=== PATIENT | male | born 1980 | race Caucasian/White ===

== ENCOUNTER 2017-03-27 13:41 | Emergency (ER) | payer BC, OTHER ==
[~2017-03-27] VITALS: Ht 180.3 cm; Wt 82.2 kg
[~2017-03-27 13:41] MED LIST: ATEN50TA8 PO; FISH OI1 PO; LISI-725 PO; MULT-506 PO; OXYC-57 PO
[2017-03-27 13:47] VITALS: TEMP 36.6; Ht 180.3 cm; Wt 82.2 kg
--- NOTE | 2017-03-27 14:10 | EMERGENCY ROOM VISIT NOTE ---
History First contact with patient: 13:47 Chief Complaint: ABDOMINAL PAIN Stated Complaint: FREQUENT URINATION W/STONES & ANUP SUBSTANCE Nursing Triage Summary: triage note; pt reports abd pain x 1 year "i have put off doing anything about it." pt denies any nausea, vomitting, diarrhea, constipation. History of Present Illness The patient is a 36 year old male who presents to the Emergency Room with complaints of urinary symptoms which have been ongoing for the past one year. The patient reports that over the past one year, he has had dysuria, increased frequency of urination and a feeling of incomplete emptying. He also reports passing stones and a anup substance in the urine. He states that he has been seen by the urgent care in [place] multiple times and has had STD testing 3 which were negative. He was seen by a urologist last year and states that they did some sort of scan and found that his bladder was not emptying fully. He reports that he was supposed to follow-up with them several weeks later, but did not make an appointment for follow-up and has not been seen by them since. He occasionally has pain in the suprapubic region of his abdomen. He also reports losing 20 pounds in the past 6 months. He smokes marijuana but denies any other drug use. He does smoke cigarettes as well. He is concerned that he may have cancer. He reports concern because his uncle had pancreatic cancer and was not seen until very late in the course. He also reports a family history of prostate cancer, but denies any family history of bladder or renal cell carcinoma. The patient denies any nausea, vomiting, changes in bowel movements, chest pain or shortness of breath. He denies any fevers/chills or recent illness. Review of Systems A complete 10 point review of systems was reviewed with the patient with pertinent positives and negatives as per history of present illness. All else were negative. Social History Smoking Status: Current Every Day Smoker Current/Historical Medications Scheduled , 1 CAP PO DAILY Atenolol (Tenormin), 50 MG PO DAILY Lisinopril (Zestril), 40 MG PO DAILY Multivitamin (Multivitamin), 1 TAB PO DAILY Allergies Coded Allergies: No Known Allergies (Verified , 03/27/17) Physical Exam Vital Signs Date Time Temp Pulse Resp B/P (MAP) Pulse Ox O2 Delivery O2 Flow Rate FiO2 6/13/17 16:34 62 16 125/72 98 03/27/17 15:45 62 16 125/72 98 Room Air 03/27/17 13:47 36.6 64 18 161/99 98 Room Air Physical Exam VITALS: Vitals are noted on the nurse's note and reviewed by myself. Vital signs stable. GENERAL: This is a 36-year-old male, in no acute distress but mildly anxious appearing, well-developed well-nourished. SKIN: The skin was without rashes or bruising. HEART: Regular rate and rhythm without murmurs gallops or rubs. LUNGS: Clear to auscultation bilaterally without wheezes, rales or rhonchi. ABDOMEN: Positive bowel sounds x 4. Soft, nontender, without masses or organomegaly. MUSCULOSKELETAL: No CVA tenderness. NEURO: Patient was alert and oriented to person place and time. Medical Decision & Procedures Laboratory Results 03/27/17 14:35 Red Blood Count 5.02, Mean Corpuscular Volume 88.0, Mean Corpuscular Hemoglobin 31.3, Mean Corpuscular Hemoglobin Concent 35.5, Mean Platelet Volume 8.6, Neutrophils (%) (Auto) 64.7, Lymphocytes (%) (Auto) 26.9, Monocytes (%) (Auto) 6.5, Eosinophils (%) (Auto) 0.7, Basophils (%) (Auto) 0.9, Neutrophils # (Auto) 4.77, Lymphocytes # (Auto) 1.98, Monocytes # (Auto) 0.48, Eosinophils # (Auto) 0.05, Basophils # (Auto) 0.07 03/27/17 14:35 Test 03/27/17 00:00 03/27/17 14:35 Urine Color DK YELLOW Urine Appearance CLOUDY (CLEAR) Urine pH 8.0 (4.5-7.5) Urine Specific [place] 1.022 (1.000-1.030) Urine Protein NEG (NEG) Urine Glucose (UA) NEG (NEG) Urine Ketones NEG (NEG) Urine Occult Blood NEG (NEG) Urine Nitrite NEG (NEG) Urine Bilirubin NEG (NEG) Urine Urobilinogen NEG (NEG) Urine Leukocyte Esterase NEG (NEG) Urine WBC (Auto) 1-5 /hpf (0-5) Urine RBC (Auto) 0-4 /hpf (0-4) Urine Hyaline Casts (Auto) 0 /lpf (0-5) Urine Epithelial Cells (Auto) 10-20 /lpf (0-5) Urine Bacteria (Auto) NEG (NEG) White Blood Count 7.37 K/uL (4.8-10.8) Red Blood Count 5.02 M/uL (4.7-6.1) Hemoglobin 15.7 g/dL (14.0-18.0) Hematocrit 44.2 % (42-52) Mean Corpuscular Volume 88.0 fL (80-100) Mean Corpuscular Hemoglobin 31.3 pg (25-34) Mean Corpuscular Hemoglobin Concent 35.5 g/dl (32-36) Platelet Count 158 K/uL (130-400) Mean Platelet Volume 8.6 fL (7.4-10.4) Neutrophils (%) (Auto) 64.7 % Lymphocytes (%) (Auto) 26.9 % Monocytes (%) (Auto) 6.5 % Eosinophils (%) (Auto) 0.7 % Basophils (%) (Auto) 0.9 % Neutrophils # (Auto) 4.77 K/uL (1.4-6.5) Lymphocytes # (Auto) 1.98 K/uL (1.2-3.4) Monocytes # (Auto) 0.48 K/uL (0.11-0.59) Eosinophils # (Auto) 0.05 K/uL (0-0.5) Basophils # (Auto) 0.07 K/uL (0-0.2) RDW Standard Deviation 39.9 fL (36.4-46.3) RDW Coefficient of Variation 12.6 % (11.5-14.5) Immature Granulocyte % (Auto) 0.3 % Immature Granulocyte # (Auto) 0.02 K/uL (0.00-0.02) Anion Gap 3.0 mmol/L (3-11) Est Creatinine Clear Calc Drug Dose 117.0 ml/min Estimated GFR () 122.7 Estimated GFR (Non- 105.9 BUN/Creatinine Ratio 9.6 (10-20) Calcium Level 8.8 mg/dl (8.5-10.1) ED Course The patient was evaluated as above. Labs were drawn and IV access was obtained. CT of the abdomen and pelvis was performed and read by radiology as above. Patient was reevaluated and findings were discussed. Discharge instructions were reviewed with the patient. The patient verbalized understanding of my assessment and treatment plan and was discharged home in good condition. Medical Decision Differential diagnosis includes kidney stones, STD, urinary tract infection, malignancy, psychogenic cause, among others. The patient is a 36-year-old male who presents today complaining of urinary complaints which have been ongoing for the past one year. The patient has been seen by his primary care provider, urgent care and urology. I was able to review the patient's records in the [facility] system. He was seen by Dr. Childress of [facility] urology on 08/10/16. He was then scheduled for a follow- up appointment which she canceled. He was rescheduled for another follow-up, but also canceled this appointment. Review of the patient's records show that he has had a renal ultrasound, urinalysis, urine culture and screening for gonorrhea and chlamydia, all of which were negative. Urology had recommended performing a cystoscopy for further evaluation, however the patient never followed up to have this done. Labs today revealed no leukocytosis, anemia, or concerning electrolyte abnormalities. Urinalysis showed a slightly elevated pH, but no other findings. CT showed no evidence of a stone or hydronephrosis. The cause of the patient's ongoing symptoms is unclear. He will need to follow up with urology for further evaluation. I did discuss the importance of follow-up with his specialist with the patient. He will call them this week for follow-up. The patient's case was reviewed with Dr. Gupta, ED attending physician, who agreed with my assessment and treatment plan. Based on the patient's presentation and work up, I feel the patient is stable for outpatient treatment. The patient was educated to return to the emergency department for any worsening of their current condition or new/concerning symptoms. He will follow up with [facility] urology and his PCP. Medication reconciliation: I attest that I have personally reviewed the patient 's current medication list. Blood pressure screening: Patient was found to have normal blood pressure on screening and does not require follow-up. Impression Primary Impression: Dysuria Departure Information Dispostion Home / Self-Care Condition GOOD Referrals No Doctor, Assigned (PCP) Linnea Childress MD Patient Instructions My [facility] Additional Instructions Today's CT scan, labs and urinalysis were all normal. Call [facility] urology to schedule a follow-up appointment. You should also follow-up with your primary care provider regarding today's emergency department visit. Return to the emergency department with any worsening or new/concerning symptoms.
[2017-03-27] MEDS ORDERED: LISI-794 PO (14:25)
[2017-03-27 14:47] LABS: BASO % 0.9 %; BASO ABS # 0.07 K/uL (0-0.2); COMPLETE YES; EOS % 0.7 %; HEMATOCRIT 44.2 % (42-52); IG% 0.3 %; LYMPH % 26.9 %; LYMPH ABS # 1.98 K/uL (1.2-3.4); MEAN CORPUSCULAR HEMOGLOBIN 31.3 pg (25-34); MEAN CORPUSCULAR HGB CONC 35.5 g/dl (32-36); MEAN PLATELET VOLUME 8.6 fL (7.4-10.4); MONO % 6.5 %; NEUT % 64.7 %; PLATELET COUNT 158 K/uL (130-400); RED BLOOD COUNT 5.02 M/uL (4.7-6.1); WHITE BLOOD COUNT 7.37 K/uL (4.8-10.8)
[2017-03-27 15:01] LABS: URINE APPEARANCE CLOUDY (CLEAR); URINE BILIRUBIN NEG (NEG); URINE COLOR DK YELLOW; URINE NITRITE NEG (NEG); URINE SPECIFIC GRAVITY 1.022 (1.000-1.030); UROBILINOGEN NEG (NEG); ZZUR CULT IF INDIC CLEAN CATCH NO
[2017-03-27 15:03] LABS: MANUAL MICROSCOPIC REQUIRED? NO; REVIEW REQ? NO
[2017-03-27 15:04] LABS: BUN/CREATININE RATIO 9.6 (10-20); CALCIUM 8.8 mg/dl (8.5-10.1); CREATININE 0.92 mg/dl (0.60-1.40); POTASSIUM 4.1 mmol/L (3.5-5.1)
--- NOTE | 2017-03-27 15:26 | DIAGNOSTIC IMAGING REPORT ---
ABDOMEN AND PELVIS CT WITHOUT CONTRAST CT DOSE: 308.50 mGy.cm HISTORY: urinary frequency, ?passing stones TECHNIQUE: Multiaxial CT images of the abdomen and pelvis were performed without the use of intravenous and oral contrast according to the standard department stone protocol. COMPARISON STUDY: None. FINDINGS: The lung bases are clear. The unenhanced liver, gallbladder, spleen, pancreas, and adrenal glands are unremarkable. No renal stones or hydronephrosis. No bowel wall thickening or obstruction. Normal bladder. No suspicious lytic or blastic osseous lesions. L4-5 posterior decompression and fusion. Tiny fat-containing left inguinal hernia. Normal appendix. IMPRESSION: No renal stones or hydronephrosis. Electronically signed by: See Sandoval M.D. 03/27/2017 3:25 PM Dictated Date/Time: 03/27/2017 3:16 PM
[2017-03-27 16:34] VITALS: BP 125/72; PULSE 62; O2SAT 98
== END 2017-03-27 16:34 | disposition home or self-care (01) ==
LOC: C.EDB 13:46 → C.EDA 16:34
DX: R30.0 Dysuria (principal); Z79.899 Other long term (current) drug therapy; F17.200 Nicotine dependence, unspecified, uncomplicated